=== PATIENT | male | born 1965 | race Caucasian/White ===

== ENCOUNTER 2017-12-07 19:38 | Emergency (ER) | payer SELFPAY ==
[~2017-12-07 19:38] MED LIST: CEP500 PO; HYDR-4309 PO; IBU600; IBUP400T13 PO; NO ROUTINE MEDS; No Rtn Meds; ONDA4TAB PO; OXYC-865 PO; TRAM-420 PO
--- NOTE | 2017-12-07 19:59 | ER Report ---
History and Physical Time Seen By MD: 20:00 HPI/ROS CHIEF COMPLAINT: Bite on elbow HISTORY OF PRESENT ILLNESS: This is a 52-year-old male who presents to the emergency department for a spot on his right elbow. Patient states over the last 2 weeks he's had some redness and swelling to his right elbow. Patient states that he scratched it several times and squeezed it really hard and was able to express a large amount of fluid out, continues to reaccumulate. Now there is some redness and warmth to the surrounding tissue. Patient denies nausea or vomiting. Does have intermittent chills. REVIEW OF SYSTEMS: Respiratory: No cough, no dyspnea. Cardiovascular: No chest pain, no palpitations. Gastrointestinal: No vomiting, no abdominal pain. Musculoskeletal: No back pain. Integumentary: As above. Allergies: Coded Allergies: No Known Drug Allergies (Verified , 01/20/15) Home Meds Active Scripts Prednisone (PREDNISONE) 20 Mg Tablet, 20 MG PO DAILY for 3 Days, #3 TAB Prov:SHERLYN TURNER [facility]- 12/07/17 Sulfamethoxazole/Trimet 800-160 Mg Tab (BACTRIM DS TABLET) 1 Each Tablet, 1 TAB PO Q12H, #19 TAB Prov:SHERLYN TURNER [facility]- 12/07/17 Reported Medications Ibuprofen (IBUPROFEN) 400 Mg Tablet, 1 TAB PO Q6H PRN for PAIN 01/20/15 Discontinued Scripts Tramadol Hcl (TRAMADOL HCL) 50 Mg Tablet, 50 MG PO Q4-6H, #12 TAB Prov:ORIANA MONET [facility] 09/28/14 Past Medical/Surgical History The patient has a past medical and surgical history of smokes, right wrist frac ture, vision problems, uses CBD oil, drinks alcohol, anxiety, left knee surgery, splenectomy puncture. Reviewed Nurses Notes: Yes Hx Smoking: Yes Smoking Status: Current: Every Day Smoker Hx Substance Use Disorder: No Hx Alcohol Use: Yes ("WHEN I WANT TO") Constitutional Vital Sign - Last 24 Hours 12/07/17 19:59 Temp 98.5 Pulse 70 Resp 18 B/P (MAP) 135/87 Pulse Ox 97 O2 Delivery Room Air Physical Exam General Appearance: The patient is alert, has no immediate need for airway protection and no current signs of toxicity. Eyes: Pupils equal and round no injection. Respiratory: Chest is non tender, lungs are clear to auscultation. Cardiac: regular rate and rhythm. Gastrointestinal: Abdomen is soft and non tender, no masses, bowel sounds normal. Musculoskeletal: Neck: Neck is supple and non tender. Extremities have full range of motion and are non tender. Skin: Swelling and erythema to the right elbow, swelling consistent with olecranon bursitis. Straw-colored discharge from the elbow. Flexion and extension, supination and pronation intact. DIFFERENTIAL DIAGNOSIS: After history and physical exam differential diagnosis was considered for bursitis, cellulitis, joint effusion, septic arthritis and gout. Medical Decision Making ED Course/Re-evaluation ED Course The patient was admitted to room. A history of physical obtained. Differential diagnoses were considered. After close examination of the patient's elbow it did appear to be cellulitic and had a bursitis appearance to it. The small opening in the skin that the patient has been picking at did open up and straw-colored fluid was expressed. Patient denies pain. The patient's elbow was covered with an absorbent pad and wrapped with an Yeyo. The patient was instructed to get an elbow pad and wear while working. Patient was also sent home with a prescription for prednisone and Bactrim. Patient was also given one dose of prednisone and Bactrim in the ER. The patient was also instructed to establish with a primary care provider here in town. Patient had no other questions or concerns at this time and discharged home. Return to the ER for any concerns or worsening symptoms. Decision to Disposition Date: Dec 07, 2017 Decision to Disposition Time: 20:46 Depart Departure Latest Vital Signs Vital Signs Date Time Temp Pulse Resp B/P (MAP) Pulse Ox O2 Delivery O2 Flow Rate FiO2 12/07/17 19:59 98.5 70 18 135/87 97 Room Air Impression: Primary Impression: Olecranon bursitis Additional Impression: Cellulitis of right elbow Condition: Improved Disposition: HOME OR SELF-CARE New Scripts Prednisone (PREDNISONE) 20 Mg Tablet 20 MG PO DAILY for 3 Days, #3 TAB Prov: SHERLYN TURNERP- 12/07/17 Sulfamethoxazole/Trimet 800-160 Mg Tab (BACTRIM DS TABLET) 1 Each Tablet 1 TAB PO Q12H, #19 TAB Prov: SHERLYN TURNERP- 12/07/17 Patient Instructions: Cellulitis (ED), Elbow Bursitis (ED) Additional Instructions: I believe you have a bursitis of the elbow with the start of a skin infection. Take the antibiotics as prescribed. Take the prednisone for the next 3 days to help with the inflammation. Keep the elbow protected with a simple compression elbow brace you can get at any pharmacy. Drink plenty of fluids. Get plenty of rest. Return to the ED for any other concerns or worsening symptoms. Problem Qualifiers Primary Impression: Olecranon bursitis Laterality: right Qualified Codes: M70.21 - Olecranon bursitis, right elbow SHERLYN TURNER [employer]PERVISOR-BC Dec 07, 2017 19:59
[2017-12-07] MEDS ORDERED: TRIMETH/SULFA DS 160-800MG TAB PO ONE (20:40)
[2017-12-07] MEDS ORDERED: predniSONE 20 MG TAB PO ONE (20:40)
[2017-12-07] MEDS ORDERED: SULF-198 PO (20:43)
[2017-12-07] MEDS ORDERED: PRED20TA6 PO (20:43)
[2017-12-07 21:00] VITALS: BP 120/115
== END 2017-12-07 21:00 | disposition home or self-care (01) ==
LOC: ER 20:10
DX: M70.21 Olecranon bursitis, right elbow (principal); L03.113 Cellulitis of right upper limb
CPT/HCPCS: 99283; J7512

== ENCOUNTER 2018-01-01 18:31 | Emergency (ER) | payer SELFPAY ==
[~2018-01-01 18:31] MED LIST changes: +PRED20TA6 PO; +SULF-198 PO
[2018-01-01 18:34] VITALS: BP 114/81
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
== END 2018-01-01 18:44 | disposition home or self-care (01) ==
LOC: ER 18:38
DX: F10.920 Alcohol use, unspecified with intoxication, uncomplicated (principal)
CPT/HCPCS: 99281

== ENCOUNTER 2018-09-14 21:10 | Emergency (ER) | payer SELFPAY ==
[2018-09-14 21:10] VITALS: BP 126/86
[~2018-09-14 21:10] MED LIST changes: -HYDR-4309 PO; +HYDR-653 PO
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
[2018-09-14] MEDS ORDERED: LIDOCAINE/PRILOCAINE 5 GM TUBE TP ONE (21:25)
--- NOTE | 2018-09-14 22:45 | RADIOLOGY IMAGING REPORT ---
[place] [facility] [place] : 1965 MR: [id number] V: [id number] EXAM DATE: ORDERING PHYSICIAN: ORIANA MOENT TECHNOLOGIST: Location: [facility] Patient: Christopher Stanford : 1965 Visit/Account:[id number] Date of Sevice: 09/14/2018 CT BRAIN NO CONTRAST HISTORY: fall, neck pain COMPARISON STUDIES: None TECHNIQUE: Contiguous axial images were obtained from the skull base to the vertex. One of the [employer] dose optimization techniques was utilized in the performance of this exam: automated exposure co ntrol; adjustment of the mA and/or kv according to patient size; or use of iterative reconstruction t echnique. Specific details can be referenced in the facility's radiology CT exam operational policy. FINDINGS: Hemorrhage: Negative Ventricles / sulci / fissures: Negative Masses / midline shift: Negative White matter: Negative Rosario-white differentiation: Negative Vessels: Negative Extra-axial spaces: Negative Bones/skull base: Negative Visualized mastoid air cells / paranasal sinuses: Mild opacification of the ethmoid air cells. Scalp and soft tissues: Negative. Other findings: None significant IMPRESSION: 1. Negative for acute intracranial blood or skull fracture. Report Dictated By: Alden Remy MD at 09/14/2018 10:40 PM Report E-Signed By: Alden Remy MD at 09/14/2018 10:42 PM WSN:[id number]
--- NOTE | 2018-09-14 22:48 | RADIOLOGY IMAGING REPORT ---
FACILITY: [facility] [place] PATIENT NAME: Christopher Stanford : 1965 MR: [id number] V: [id number] EXAM DATE: ORDERING PHYSICIAN: ORIANA MONET TECHNOLOGIST: Location: [facility] Patient: Christopher Stanford : 1965 Visit/Account:[id number] Date of Sevice: 09/14/2018 CT VERTEBRA CERVICAL (NON CON) HISTORY: fall, neck pain COMPARISON STUDIES: none TECHNIQUE: Axial images were obtained from the skull base through the upper thoracic spine without i ntravenous contrast. Coronal and sagittal reformatted images were obtained from the axial source data . One of the following dose optimization techniques was utilized in the performance of this exam: aut omated exposure control; adjustment of the mA and/or kv according to patient size; or use of iterativ e reconstruction technique. Specific details can be referenced in the facility's radiology CT exam op erational policy. FINDINGS: Pre-vertebral soft tissues: Negative Fracture/alignment: negative Vertebral bodies: Negative Posterior elements: Multilevel mild facet proliferation. Disc Spaces: Multilevel mild degenerative disc disease with uncovertebral joint hypertrophy particula rly at C6-C7. Visualized soft tissues anterior neck: Negative Visualized lung / mediastinum: Negative Other findings: None significant IMPRESSION: 1. Negative for acute fracture or spondylolisthesis within the cervical spine. Report Dictated By: Alden Remy MD at 09/14/2018 10:42 PM Report E-Signed By: Alden Remy MD at 09/14/2018 10:44 PM WSN:[id number]
== END 2018-09-14 22:53 ==
LOC: ER 21:16
DX: F10.920 Alcohol use, unspecified with intoxication, uncomplicated (principal); S00.81XA Abrasion of other part of head, initial encounter
CPT/HCPCS: 70450; 72125; 99284

== ENCOUNTER 2018-11-03 23:41 | Emergency (ER) | payer SELFPAY ==
[2018-11-03 23:43] VITALS: BP 108/76
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
== END 2018-11-03 23:57 ==
LOC: ER 23:47
DX: F10.920 Alcohol use, unspecified with intoxication, uncomplicated (principal)
CPT/HCPCS: 99281